=== PATIENT | female | born 1970 | race African-American/Black ===

== ENCOUNTER 2020-11-30 07:08 | Emergency (ER) | payer MEDICAID ==
[~2020-11-30] VITALS: Ht 170.2 cm; Wt 80.0 kg
[2020-11-30] MEDS ORDERED: MORPHINE SULFATE 4 MG/ML CPJ (NOT FOR IM USE) IV STA (07:41)
[2020-11-30] MEDS ORDERED: ONDANSETRON HCL 4MG/2ML INJ IV STA (07:41)
[2020-11-30 09:34] VITALS: BP 160/95
== END 2020-11-30 09:46 | disposition home or self-care (01) ==
LOC: ER 07:08
DX: M54.9 Dorsalgia, unspecified (principal)
CPT/HCPCS: 72125; 72128; 72131; 73030; 73060; 73070; 73100; 96374; 96375; 99285; J2270; J2405